=== PATIENT | male | born 1990 | race American Indian/Alaskan Native ===

== ENCOUNTER 2016-04-27 09:23 | Emergency (ER) | payer SELFPAY ==
[2016-04-27 09:45] VITALS: BP 124/72
[2016-04-27] MEDS ORDERED: TORADOL IM ONE (11:40)
[2016-04-27] MEDS ORDERED: NORCO 5/325 PO ONE ×2 (11:40→12:04)
[2016-04-27] MEDS ORDERED: ULTRAM PO ONE (11:41)
--- NOTE | 2016-04-27 12:05 | XRay Report ---
LEFT KNEE: The bony architecture is intact without evidence of fracture or dislocation. No significant soft tissue abnormality is seen. IMPRESSION: Normal left knee.
[2016-04-27] MEDS ORDERED: XYLOCAINE 1%/ EPI 1:100,000 INFILTRATI ONE (12:24)
--- NOTE | 2016-04-27 12:27 | Emergency Department Report ---
ED Lower Extremity HPI - General Chief Complaint: Extremity Problem,Nontraumatic Stated Complaint: LT KNEE PAIN Time Seen by Provider: 04/27/16 09:53 Source: patient Mode of arrival: Ambulatory Limitations: No Limitations - History of Present Illness Initial Comments: 24-year-old male with no significant past medical history presents to Hospital complaints of left knee pain since yesterday. Patient woke up with the pain. Described as a constant ache rated 7/10 intensity. For outpatient movement. No alleviating factors including Motrin at home. No known injury reported. No reports of fever or chills. - Related Data Previous Rx's Medication Instructions Recorded Last Taken Type Amoxicillin [Trimox CAP] 500 mg PO Q8H #30 capsule 07/04/14 Unknown Rx Ibuprofen [Motrin] 600 mg PO Q8H PRN #50 tablet 07/04/14 Unknown Rx Loratadine [Claritin] 10 mg PO DAILY #30 tablet 07/04/14 Unknown Rx predniSONE [Deltasone] 40 mg PO QDAY #10 tab 07/04/14 Unknown Rx HYDROcodone/APAP 5-325 [Baker 1 each PO Q6HR PRN #20 tablet 04/27/16 Unknown Rx 5/325] Ibuprofen [Motrin] 600 mg PO Q8H PRN #30 tablet 04/27/16 Unknown Rx Sulfamethoxazole/Trimethoprim 1 tab PO BID #20 tab 04/27/16 Unknown Rx [Bactrim 400-80 mg] Allergies Allergy/AdvReac Type Severity Reaction Status Date / Time No Known Allergies Allergy Verified 07/04/14 18:33 ED Review of Systems ROS: Stated complaint: LT KNEE PAIN Other details as noted in HPI Comment: All other systems reviewed and negative Other: Constitutional: No fevers chills Eyes: No eye pain visual changes ENT: No ear pain or throat pain Neck: Denies pain Respiratory: Denies cough wheezing shortness of breath Cardiovascular: Denies chest pain, palpitations, syncope GI: Denies abdominal pain, nausea, vomiting, diarrhea : Denies dysuria, urinary frequency, or urgency Musculoskeletal: As per HPI Skin: Denies rash, lesions, erythema Neurologic: Denies headache, numbness, weakness Psychiatric: Denies suicidal ideation, hallucinations ED Past Medical Hx - Past Medical History Previous Medical History?: No - Surgical History Past Surgical History?: No - Social History Smoking Status: Current Every Day Smoker Substance Use Type: None - Medications Home Medications: Home Medications Medication Instructions Recorded Confirmed Last Taken Type Amoxicillin [Trimox CAP] 500 mg PO Q8H #30 capsule 07/04/14 Unknown Rx Ibuprofen [Motrin] 600 mg PO Q8H PRN #50 tablet 07/04/14 Unknown Rx Loratadine [Claritin] 10 mg PO DAILY #30 tablet 07/04/14 Unknown Rx predniSONE [Deltasone] 40 mg PO QDAY #10 tab 07/04/14 Unknown Rx HYDROcodone/APAP 5-325 [Baker 1 each PO Q6HR PRN #20 tablet 04/27/16 Unknown Rx 5/325] Ibuprofen [Motrin] 600 mg PO Q8H PRN #30 tablet 04/27/16 Unknown Rx Sulfamethoxazole/Trimethoprim 1 tab PO BID #20 tab 04/27/16 Unknown Rx [Bactrim 400-80 mg] ED Physical Exam - General Limitations: No Limitations - Other Other exam information: General: No limitations, patient is alert in no acute distress Head exam: Atraumatic, normocephalic Eyes exam: Normal appearance, pupils equal reactive to light, extraocular movements intact ENT: Moist mucous membrane, normal oropharynx Neck exam: Normal inspection, full range of motion, no meningismus nontender Respiratory exam: Clear to auscultation bilateral, no wheezes, rales, crackles Cardiovascular: Normal rate and rhythm, normal heart sounds Abdomen: Soft, nondistended, and nontender, with normal bowel sounds, no rebound, or guarding Extremity: Left knee swelling with joint effusion with tenderness to palpation greatest at the lateral patella areath Positive warmth. + erythema as per mother, none noted on exam. No bite wound or punctate lesion Limited flexion secondary to pain Back: Normal Inspection, full range of motion, no tenderness. Neurologic: Alert, oriented x3, cranial nerves intact, no motor or sensory deficit Psychiatric: normal affect, normal mood Skin: Warm, dry, intact ED Course Vital Signs 04/27/16 09:40 Temperature 97.3 F L Pulse Rate 47 L Respiratory 14 Rate Blood Pressure 124/72 O2 Sat by Pulse 100 Oximetry - Joint Aspiration/Injection Consent Obtained: written consent Time Out Performed: Yes Indications: R/O septic arthritis Side of Body: left Joint Aspirated: knee Ultrasound Guidance: No Skin Prep: Povidone-Iodine1% Local Anesthesia Used: Lidocaine 1% Amount of Anesthesia Used (mls): 3 Needle Size Used: Other (21) Syringe Size Used: Other (30) Patient Tolerated Procedure: well Complications: none Additional Comments: no fluid obtained ED Lower Extremity MDM - Radiology Data Radiology results: report reviewed (left knee x-ray: No fracture) - Medical Decision Making No fluid obtained for arthrocentesis attempt. Approach was medial since maximal tenderness and pain and possibly erythema was located on the lateral edge of the knee pain. Arthrocentesis was attempted due to pain with movement of the knee joint and new monarticular effusion without history of trauma. Patient denies dysuria. Low suspicion for septic arthritis. Unable to obtain fluid. Patient be treated with Bactrim for possible overlying lateral knee cellulitis - Differential Diagnosis physical arthritis, monarticular m arthritis, gonococcal arthritis, inflamm Critical Care Time: No Critical care attestation.: If time is entered above; I have spent that time in minutes in the direct care of this critically ill patient, excluding procedure time. ED Disposition Clinical Impression: Swollen L knee Knee pain, acute Qualifiers: Laterality: left Qualified Code(s): M25.562 - Pain in left knee Cellulitis Qualifiers: Site of cellulitis: extremity Site of cellulitis of extremity: lower extremity Laterality: left Qualified Code(s): L03.116 - Cellulitis of left lower limb Disposition: DISCHARGED TO HOME OR SELFCARE Is pt being admited?: No Does the pt Need Aspirin: No Condition: Stable Instructions: Knee Pain (ED), Cellulitis (ED) Additional Instructions: Take the medication as needed. Return if symptoms worsen. Follow up with orthopedic doctor provided within 2-3 days Prescriptions: HYDROcodone/APAP 5-325 [Baker 5/325] 1 each PO Q6HR PRN #20 tablet PRN Reason: Pain Ibuprofen [Motrin] 600 mg PO Q8H PRN #30 tablet PRN Reason: Pain Sulfamethoxazole/Trimethoprim [Bactrim 400-80 mg] 1 tab PO BID #20 tab Referrals: SHAISTA JOHNSON MD [Staff Physician] - 2-3 Days Time of Disposition: 13:20
[2016-04-27] MEDS ORDERED: BACTRIM DS PO ONE (12:47)
[2016-04-27] MEDS ORDERED: XYLOCAINE 1%/ EPI 1:100,000 INFILTRATI NR (14:00)
== END 2016-04-27 13:42 | disposition home or self-care (01) ==
LOC: ED 09:23
DX: L03.116 Cellulitis of left lower limb (principal); M25.462 Effusion, left knee; F17.200 Nicotine dependence, unspecified, uncomplicated
CPT/HCPCS: 20610; 73562; 96372; 99283; J1885

== ENCOUNTER 2021-01-15 08:45 | Emergency (ER) | payer SELFPAY ==
[2021-01-15] MEDS ORDERED: ASPIRIN 325 MG TAB PO ONE (08:50)
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
[2021-01-15 09:59] LABS: Amphetamine Screen,Urine Negative; Benzodiazepines Screen,Urine Negative; Cocaine Screen,Urine Negative; Methadone Screen,Urine Negative; Opiate Screen,Urine Negative
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
[2021-01-15 10:33] LABS: Cannabinoid Screen,Urine Positive
[2021-01-15 11:30] VITALS: BP 127/67
--- NOTE | 2021-01-16 12:25 | Electrocardiograph Report ---
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
== END 2021-01-15 11:38 | disposition home or self-care (01) ==
LOC: ED 08:45
DX: S09.93XA Unspecified injury of face, initial encounter (principal); R04.0 Epistaxis; F17.200 Nicotine dependence, unspecified, uncomplicated; Z79.899 Other long term (current) drug therapy; V89.2XXA Person injured in unspecified motor-vehicle accident, traffic, initial encounter; Y93.89 Activity, other specified; Y92.488 Other paved roadways as the place of occurrence of the external cause; Y99.8 Other external cause status
CPT/HCPCS: 70450; 70486; 72125; 80307; 93005; 99284